=== PATIENT | female | born 1995 | race Caucasian/White ===

== ENCOUNTER 2023-07-07 16:03 | Outpatient (CLI) | payer BC ==
--- NOTE | 2023-07-07 17:17 | Ultrasound Report ---
PROCEDURE: Pelvic Complete INDICATIONS: HEAVY MENSTRATION TECHNIQUE: Real-time transabdominal scanning was performed of the pelvic organs, with image documentation. COMPARISON: None FINDINGS: Uterus: Uterus is anteverted and normal in size at 9 x 6 x 7.7 cm. The myometrium is homogeneous. The endometrium measures 18 mm in combined thickness. Ovaries: The right ovary measures 3.8 x 2.6 x 3.6 cm, with a calculated ovarian volume of 18 cc. Th e left ovary measures 4.7 x 2 x 2.7 cm, with a calculated ovarian volume of 14 cc. The ovaries have a normal sonographic appearance. Less than 12 follicles can be seen in each ovary. No adnexal steve s are seen. No cystic lesions measuring greater than 3 cm. Other: No free pelvic fluid. IMPRESSION: Mildly thickened endometrium. Otherwise, no findings to explain the patient's heavy menstruation. Reviewed by: Jaspreet Riggs on 07/07/2023 5:15 PM PDT Approved by: Jaspreet Riggs on 07/07/2023 5:15 PM PDT Station ID: [id number]
== END 2023-07-07 16:04 | disposition home or self-care (01) ==
LOC: DI 16:03
PROVIDERS: ATTEND Physician Assistant
DX: R93.89 Abnormal findings on diagnostic imaging of other specified body structures (principal); N92.0 Excessive and frequent menstruation with regular cycle; R10.2 Pelvic and perineal pain